=== PATIENT | female | born 1995 | race Caucasian/White ===

== ENCOUNTER → 2021-03-07 | Outpatient (CLI) | payer OTHER ==
[~2021-03-07] MED LIST: ALTAVERA1 EACH PO; EPIPEN0.3 MG/0.3 IM; MEDROLDOSEPACK PO
== END ==
LOC: M.LAB 15:05
PROVIDERS: ATTEND Surgery
DX: Z01.812 Encounter for preprocedural laboratory examination (principal); Z20.822 Contact with and (suspected) exposure to COVID-19